=== PATIENT | male | born 1975 | race Hispanic/Latino ===

== ENCOUNTER 2016-10-30 11:39 | Emergency (ER) | payer OTHER ==
[2016-10-30 11:45] VITALS: BP 126/72; PULSE 78; RESP 16; TEMP 98.4; O2SAT 97
--- NOTE | 2016-10-30 12:08 | ED PDOC ---
Lower Extremity Pain/Injury Time Seen by Provider: 10/30/16 11:54 Chief Complaint (Nursing): Lower Extremity Problem/Injury Chief Complaint (Provider): Lower Extremity Problem History Per: Patient History/Exam Limitations: no limitations Onset/Duration Of Symptoms: Days (2x months, worse since 3x weeks, worst for the past 3x days) Current Symptoms Are (Timing): Still Present Severity: Moderate Pain Scale Rating Of: 6 Additional Complaint(s): 41 year old male with no pertinent medical history presents to the ED with complaints of left knee pain that started 2x months ago after a couch he was moving accidentally fell on his left knee while at work. He reports that the pain initially was minimal, but has been progressively worsening for the past 3x weeks, and has been at its worst for the past 3x days, despite having no new trauma. He reports that the pain is on the inner part of his left knee and worsens with ambulation, especially when walking up and down the stairs. He reports that the pain is not present when he is not moving. He denies having numbness, tingling, warmth, rashes, redness, calf pain, and fevers. Patient reports self medicating with muscle relaxants prescribed to his son (1x dose prior to arrival). Patient denies taking Tylenol and Advil, contrary to triage note (confirmed by his son Joaquin over the phone). PMD: Jl Wells MD - Knee Description Of Injury: Struck With Object (couch fell on patient's left knee) Past Medical History Reviewed: Historical Data, Nursing Documentation, Vital Signs Vital Signs: Last Vital Signs Temp 98.4 F 10/30/16 11:42 Pulse 78 10/30/16 11:42 Resp 16 10/30/16 11:42 BP 126/72 10/30/16 11:42 Pulse Ox 97 10/30/16 11:42 - Medical History PMH: No Chronic Diseases - Surgical History Other surgeries: sinus abscess surgery 5x years ago - Family History Family History: States: No Known Family Hx - Social History Current smoker - smoking cessation education provided: No Alcohol: None Drugs: Denies - Home Medications Home Medications: Ambulatory Orders Medication Instructions Recorded Meloxicam [Mobic] 15 mg PO DAILY PRN #15 tab 10/30/16 - Allergies Allergies/Adverse Reactions: Allergies Allergy/AdvReac Type Severity Reaction Status Date / Time No Known Allergies Allergy Verified 10/30/16 12:17 Review of Systems Constitutional: Negative for: Fever, Chills Musculoskeletal: Positive for: Leg Pain (left knee pain ). Negative for: Other (calf pain) Skin: Negative for: Rash (no rash, redness, or warmth to the left knee) Neurological: Negative for: Numbness (no tingling) Physical Exam - Reviewed Nursing Documentation Reviewed: Yes Vital Signs Reviewed: Yes - Physical Exam Appears: Positive for: Well, Non-toxic, No Acute Distress Head Exam: Positive for: ATRAUMATIC, NORMOCEPHALIC Skin: Positive for: Normal Color, Warm, Dry. Negative for: Rash Pulses-Dorsalis Pedis (L): 2+ Pulses-Dorsalis Pedis (R): 2+ Extremity: Positive for: Normal ROM (normal range of motion actively of left knee. Left knee: no tenderness, no warmth, no swelling, no erythema, no breaks in skin integrity. (+) varicose veins on the medial superior side of left knee with minimal tenderness surrounding it. (-) palpable cord. (+) Pain with passive flexion of left knee. (-) anterior drawer sign. ), Capillary Refill (< 2 seconds), Other (distal sensation in tact). Negative for: Calf Tenderness ( bilaterally), Swelling (no skin changes to left leg) Neurologic/Psych: Positive for: Alert, Oriented (3x). Negative for: Aphasia, Facial Droop - ECG O2 Sat by Pulse Oximetry: 97 (RA) Pulse Ox Interpretation: Normal - Radiology X-Ray: Interpreted by Me (LEFT knee x-ray) X-Ray Interpretation: Other (no fx or bony abnormality) - Progress ED Course And Treament: Pt. and son (Joaquin, via phone) that pt. requires outpt. f/u with orthopedist and that he will be given information for an orthopedist. Medical Decision Making Medical Decision Makin:54 Initial impression: 41 year old male with left knee pain Initial plan: * XRay knee left 3 views * toradol 15mg IM * reevaluation Scribe Attestation: Documented by Ryann Pierce, acting as a scribe for Howard Montoya Provider Scribe Attestation: All medical record entries made by the Scribe were at my direction and personally dictated by me. I have reviewed the chart and agree that the record accurately reflects my personal performance of the history, physical exam, medical decision making, and the department course for this patient. I have also personally directed, reviewed, and agree with the discharge instructions and disposition. Disposition - Clinical Impression Clinical Impression: Acute knee pain - Patient ED Disposition Is Patient to be Admitted: No - Disposition Referrals: [facility] [Outside] Celestine Sy MD [Staff Provider] - Disposition: Routine/Home Disposition Time: 12:31 Condition: STABLE Prescriptions: Meloxicam [Mobic] 15 mg PO DAILY PRN #15 tab PRN Reason: pain Instructions: Knee Pain (ED) Forms: [employer] ([place]anaian), [facility] ED School/Work Excuse Print Language: IRISH
--- NOTE | 2016-10-31 09:55 | RAD ---
PROCEDURE: Left Knee Radiographs. HISTORY: Pain. No history of recent/ related trauma provided COMPARISON: None. FINDINGS: BONES: Normal. No fracture. JOINTS: Normal. No osteoarthritis. JOINT EFFUSION: None. OTHER FINDINGS: None. IMPRESSION: Unremarkable radiographs of the left knee. No preliminary report provided by emergency department personnel.
== END 2016-10-30 12:52 | disposition home or self-care (01) ==
LOC: H.ER 11:39
DX: M25.562 Pain in left knee (principal)

== ENCOUNTER 2017-03-28 20:19 | Emergency (ER) | payer SELFPAY ==
[2017-03-28 20:28] VITALS: BP 126/78; PULSE 107; RESP 20; TEMP 98.1; O2SAT 97
[2017-03-28] MEDS ORDERED: Oxycodone/Acetaminophen 5/325 mg Tab PO STA (20:43)
--- NOTE | 2017-03-28 20:46 | ED PDOC ---
Lower Extremity Pain/Injury Time Seen by Provider: 03/28/17 20:25 Chief Complaint (Nursing): Lower Extremity Problem/Injury Chief Complaint (Provider): Right knee pain History Per: Patient History/Exam Limitations: no limitations Current Symptoms Are (Timing): Still Present Additional Complaint(s): 41 y/o male presents to the emergency department with a complaint of a right knee pain earlier today, 03/28/2017. Patient states he was walking, lost balance on his left knee, and felt his right knee twist causing the pain. 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 Patient took Advil medication about 2 hours ago. Denies fever or chills. Past Medical History Reviewed: Historical Data, Nursing Documentation, Vital Signs Vital Signs: Last Vital Signs Temp 98.1 F 03/28/17 20:25 Pulse 107 H 03/28/17 20:25 Resp 20 03/28/17 20:25 BP 126/78 03/28/17 20:25 Pulse Ox 97 03/28/17 20:25 - Medical History PMH: No Chronic Diseases - Surgical History Surgical History: No Surg Hx - Family History Family History: States: Unknown Family Hx - Social History Current smoker - smoking cessation education provided: No Alcohol: None Drugs: Denies - Home Medications Home Medications: Ambulatory Orders Medication Instructions Recorded Meloxicam [Mobic] 15 mg PO DAILY PRN #15 tab 10/30/16 - Allergies Allergies/Adverse Reactions: Allergies Allergy/AdvReac Type Severity Reaction Status Date / Time No Known Allergies Allergy Verified 10/30/16 12:17 Review of Systems ROS Statement: Except As Marked, All Systems Reviewed And Found Negative (As per HPI, otherwise negative) Constitutional: Negative for: Fever, Chills Musculoskeletal: Positive for: Other (Right knee pain) Physical Exam - Reviewed Nursing Documentation Reviewed: Yes Vital Signs Reviewed: Yes - Physical Exam Appears: Positive for: Non-toxic, No Acute Distress Head Exam: Positive for: ATRAUMATIC, NORMAL INSPECTION, NORMOCEPHALIC Skin: Positive for: Normal Color, Warm, Dry Extremity: Positive for: Normal ROM (Able to bend with minimal flexion due to pain), Tenderness (to the popliteal fossa and over the patella). Negative for: Other (No effusion or ecchymosis noted) Neurologic/Psych: Positive for: Alert, Oriented (x3) - ECG O2 Sat by Pulse Oximetry: 97 (RA) Pulse Ox Interpretation: Normal Medical Decision Making Medical Decision Making: Time: 2039 Initial impression: Right knee pain s/p twist Initial plan: --Right knee x-ray --Percocet 5/325 mg PO --Reevaluation Time: 2119 --X-ray: NAD, as read by LOGAN RICE therapy and ortho follow up advised Scribe Attestation: Documented by Judie Cooney, acting as a scribe for Kim Escalona PA-C Provider Scribe Attestation: All medical record entries made by the Scribe were at my direction and personally dictated by me. I have reviewed the chart and agree that the record accurately reflects my personal performance of the history, physical exam, medical decision making, and the department course for this patient. I have also personally directed, reviewed, and agree with the discharge instructions and disposition. Disposition - Clinical Impression Clinical Impression: Knee pain - Patient ED Disposition Is Patient to be Admitted: No - Disposition Disposition: Routine/Home Disposition Time: 21:53 Condition: STABLE Forms: [employer] (Fijian) - POA Present On Arrival: None
--- NOTE | 2017-03-29 09:42 | RAD ---
PROCEDURE: Right Knee Radiographs. HISTORY: pain COMPARISON: None. FINDINGS: BONES: Normal. No fracture. JOINTS: Laterally oriented patella - consistent with a developmental variant. No estella dislocation. No osteoarthritis. JOINT EFFUSION: None. OTHER FINDINGS: None. IMPRESSION: No fracture. 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 No estella dislocation. No osteoarthritis.
== END 2017-03-28 22:26 | disposition home or self-care (01) ==
LOC: H.ER 20:19
DX: M25.561 Pain in right knee (principal)